=== PATIENT | male | born 1995 | race Caucasian/White ===

== ENCOUNTER 2018-10-13 19:28 | Emergency (ER) | payer MEDICAID, OTHER ==
[2018-10-13] MEDS ORDERED: Lidocaine 1% 20 ML MDV ONE (19:46)
[2018-10-13] MEDS ORDERED: Lidocaine 1% 20 ML MDV INJECT ONE (20:00)
[2018-10-13] MEDS ORDERED: Diphtheria,Pertussis(Acell),Tetanus Vaccine 0.5 ML Syringe IM ONE (20:01)
[2018-10-13] MEDS ORDERED: Bacitracin/Neomycin/Polymyxin B Oint 0.9 GM U/D Packet ONE (20:11)
--- NOTE | 2018-10-13 20:29 | EDM.PDOC ---
ED HPI GENERAL MEDICAL PROBLEM - General Chief Complaint: Laceration Stated Complaint: LACERATION Time Seen by Provider: 10/13/18 19:48 Source of Information: Reports: Patient History Limitations: Reports: No Limitations - History of Present Illness INITIAL COMMENTS - FREE TEXT/NARRATIVE: Yeimi is a 23 year old male who presents to the ED with c/o a laceration to his third right knucle and his second right finger. Reports he was working on a piece of metal when it slipped and cut his finger. Injury happened at 1630, ~ 3.5 hours prior to ED presentation. CMS intact. No other complaints. Onset: Today, Sudden Onset Date: 10/13/18 Onset Time: 16:30 Location: Reports: Upper Extremity, Right Associated Symptoms: Reports: No Other Symptoms Right Finger-Middle Pain Score (Numeric/FACES): 3 - Related Data Allergies Allergy/AdvReac Type Severity Reaction Status Date / Time No Known Allergies Allergy Verified 10/13/18 19:32 Home Meds: Home Meds . [No Known Home Meds] 10/13/18 [History] Social & Family History - Tobacco Use Smoking Status *Q: Current Every Day Smoker Years of Tobacco use: 5 Packs/Tins Daily: 1 - Caffeine Use Caffeine Use: Reports: Soda - Recreational Drug Use Recreational Drug Use: No ED ROS GENERAL - Review of Systems Review Of Systems: ROS reveals no pertinent complaints other than HPI. ED EXAM, SKIN/RASH Exam: See Below Exam Limited By: No Limitations General Appearance: Alert, WD/WN, No Apparent Distress Peripheral Pulses: 1+: Radial (R) Skin: Wound/Incision (3rd right finger, 2 cm V shaped laceartion to knuckle, 1 cm superficial laceration to 2nd right finger) Location, Skin: Upper Extremity, Right ED SKIN PROCEDURES - Laceration/Wound Repair Right Digit - 3rd (Middle) Lac/Wound length In cm: 2 Appearance: Subcutaneous, Clean Distal NVT: Neuro & Vascular Intact, No Tendon Injury Anesthetic Type: Local Local Anesthesia - Lidocaine (Xylocaine): 1% Plain Local Anesthetic Volume: 3cc Skin Prep: Providone-Iodine (Betadine) Exploration/Debridement/Repair: Wound Explored, No Foreign Material Found Closed with: Sutures Suture Size: 4-0 # of Sutures: 5 Suture Type: Nylon, Interrupted, Simple Tetanus Status Addressed: Yes Complications: No Progress/Comments: Patient tolerated well. Course - Vital Signs Last Recorded V/S: Last Vital Signs Temp 97.1 F 10/13/18 19:28 Pulse 70 10/13/18 19:28 Resp 18 10/13/18 19:28 BP 130/76 10/13/18 19:28 Pulse Ox 98 10/13/18 19:28 - Orders/Labs/Meds Orders: Active Orders 24 hr Category Date Time Status Vaccines to be Administered [RC] PER UNIT ROUTINE Care 10/13/18 20:02 Active Meds: Medications Discontinued Medications Generic Name Dose Route Start Last Admin Trade Name Freq PRN Reason Stop Dose Admin Diphtheria/Tetanus/Acell Pertussis 0.5 ml 10/13/18 20:01 10/13/18 20:05 Adacel IM 10/13/18 20:02 0.5 ml .ONCE ONE Administration Lidocaine HCl Confirm 10/13/18 19:46 10/13/18 20:03 Xylocaine 1% Administered 10/13/18 19:47 Not Given Dose 20 ml .ROUTE .STK-MED ONE Lidocaine HCl 20 ml 10/13/18 20:00 10/13/18 20:03 Xylocaine 1% INJECT 10/13/18 20:01 20 ml ONETIME ONE Administration Departure - Departure Time of Disposition: 20:24 Disposition: Home, Self-Care 01 Condition: Good Clinical Impression: Laceration of finger of right hand Qualifiers: Encounter type: initial encounter Finger: middle finger Damage to nail status: without damage Foreign body presence: without foreign body Qualified Code(s): S61.212A - Laceration without foreign body of right middle finger without damage to nail, initial encounter - Discharge Information *PRESCRIPTION DRUG MONITORING PROGRAM REVIEWED*: Not Applicable *COPY OF PRESCRIPTION DRUG MONITORING REPORT IN PATIENT RAISSA: Not Applicable Instructions: Sutured Wound Care, [id number] Referrals: PCP,None [Primary Care Provider] - Additional Instructions: 1) Tylenol or ibuprofen as needed for pain 2) Keep area clean and dry. Cover while at work. May apply Neosporin daily. 3) Try not to bend finger until well healed. 4) Monitor for s/s of infection (redness, drainage, warmth) 5) Follow up with PCP for suture removal in 10 days - My Orders Last 24 Hours: My Active Orders 10/13/18 20:02 Vaccines to be Administered [RC] PER UNIT ROUTINE - Assessment/Plan Last 24 Hours: My Active Orders 10/13/18 20:02 Vaccines to be Administered [RC] PER UNIT ROUTINE
== END 2018-10-13 20:32 | disposition home or self-care (01) ==
LOC: CC.ED 19:28
DX: S61.212A Laceration without foreign body of right middle finger without damage to nail, initial encounter (principal); S61.210A Laceration without foreign body of right index finger without damage to nail, initial encounter; Z23 Encounter for immunization; F17.210 Nicotine dependence, cigarettes, uncomplicated; W26.8XXA Contact with other sharp object(s), not elsewhere classified, initial encounter
CPT/HCPCS: 12001; 90471; 90715; 99282; J2001